=== PATIENT | female | born 1945 | race Caucasian/White ===

== ENCOUNTER 2016-12-26 09:40 | Day surgery (SDC) | payer MEDICARE, SELFPAY ==
[~2016-12-26 09:40] MED LIST: [UNRECOGNIZED DRUG - OTHER] PO
[2016-12-26] MEDS ORDERED: PERCOCET 5-3251 EACH PO (19:43)
== END 2016-12-27 10:25 ==
LOC: WSU 09:40 → SHSB 09:47 → ORW 11:27 → PACU 13:56 → OBGF 15:10
PROC: 0USG4ZZ Reposition Vagina, Percutaneous Endoscopic Approach (ICD-10-PCS; principal; 2016-12-26)
PROC: 8E0W4CZ Robotic Assisted Procedure of Trunk Region, Percutaneous Endoscopic Approach (ICD-10-PCS; 2016-12-26)
DX: N81.10 Cystocele, unspecified (principal); N73.6 Female pelvic peritoneal adhesions (postinfective); I10 Essential (primary) hypertension; I83.90 Asymptomatic varicose veins of unspecified lower extremity; M19.90 Unspecified osteoarthritis, unspecified site; Z88.0 Allergy status to penicillin; Z91.048 Other nonmedicinal substance allergy status; Z87.891 Personal history of nicotine dependence; Z90.710 Acquired absence of both cervix and uterus; Z90.722 Acquired absence of ovaries, bilateral; Z90.79 Acquired absence of other genital organ(s); Z90.81 Acquired absence of spleen; Z98.890 Other specified postprocedural states
CPT/HCPCS: J0690; J1580; J7030; J7121